=== PATIENT | male | born 2000 | race Caucasian/White ===

== ENCOUNTER 2021-11-01 16:19 | Emergency (ER) | payer SELFPAY ==
[2021-11-01 23:06] LABS: SARS-CoV-2 PCR by NAA Not Detected (NotDetected)
== END 2021-11-01 17:37 | disposition home or self-care (01) ==
LOC: ERS 16:19
DX: R05.9 Cough, unspecified (principal); R50.9 Fever, unspecified; R11.10 Vomiting, unspecified; Z20.822 Contact with and (suspected) exposure to COVID-19
CPT/HCPCS: 87804; 99283; U0003; U0005